=== PATIENT | male | born 1945 | race Caucasian/White ===

== ENCOUNTER 2016-04-27 21:21 | Emergency (ER) | payer MEDICARE ==
[~2016-04-27 21:21] MED LIST: ASPI325T32 PO; ATOR80TA PO; CALC-190 PO; CINN500C14 PO; GARL1TAB PO; LOSA25TA21 PO; METF500T4 PO; METO25TA6 PO; MULT1CAP33 PO; Melatonin; NITR0.4T6 SL; SILD100T PO; Vitamin D3
[2016-04-27 21:24] VITALS: PULSE 69; RESP 18; O2SAT 94
[2016-04-27 21:38] VITALS: BP 126/58; PULSE 65; RESP 11; O2SAT 95
--- NOTE | 2016-04-27 21:41 | ED.REPORT ---
HPI-General Illness Date of Service Apr 27, 2016 ED Provider: Dr. Mateo Unger MD A 70 year old male with a history of CAD and type II diabetes presents to the ED after a syncopal episode that occurred just prior to arrival. Associated symptoms include diaphoresis and dizziness. His symptoms are exacerbated by standing up and relieved when he is laying down. Patient states that he may have overdosed on metformin and his BP medication. He denies any chest pain, nausea or vomiting. He last ate an orange at 1999. Patient is a difficult historian. Patient's reports that he has not been eating normally over the course of the past month, however, he has been on the road for the past 3 weeks. She does not believe the possible overdose of medication was intentional. Nursing Notes Stated Complaint: NEAR SYCOPE,SWEATS Chief Complaint: General Complaint Nursing Notes Reviewed: Yes Allergies: Coded Allergies: tetracycline (Verified Allergy, Mild, 01/03/09) lisinopril (Verified Allergy, Unknown, 08/09/15) Scheduled Aspirin (Aspirin) 325 Mg Tablet 325 MG PO DAILY Atorvastatin (Lipitor) 80 Mg Tablet 80 MG PO DAILY Calcium Carb&Cit/Mag12/Vit D3 (Calcium 500 mg Tablet) 1 Each Tablet 1 EACH PO DAILY Cinnamon Bark (Cinnamon) 500 Mg Capsule 2 TAB PO DAILY Garlic (Garlic) 1 Each Tablet 2 EACH PO DAILY Losartan Potassium (Losartan Potassium) 25 Mg Tablet 25 MG PO DAILY Metformin (Metformin) 500 Mg Tablet 500 MG PO BIDAC Metoprolol Tartrate (Metoprolol Tartrate) 25 Mg Tablet 25 MG PO BID Multivitamin (Multivitamins) 1 Each Capsule 1 EACH PO DAILY Scheduled PRN Nitroglycerin SL (Nitroglycerin SL) 0.4 Mg Tab.subl 0.4 MG SL PRN For Chest Pain Sildenafil Citrate (Viagra) 100 Mg Tablet 100 MG PO UD PRN PRN for sexual activity Miscellaneous Medications ([Melatonin]) ([Vitamin D3]) General Time Seen by MD: 21:41 Chief Complaint Other (Near syncope) Hx Obtained From: Patient Arrived By: Walk-in Sudden in Onset?: Yes Onset Occurred: Just prior to arrival Symptom Duration: Since onset Associated with: Reports: Diaphoresis, Dizziness, Syncope, Denies: Nausea, Vomiting Pertinent Negative: Pt denies other symptoms Exacerbated by: Standing up Relieved by: Rest Recent Healthcare: No recent hospitalization, Recent doctor visit Past Medical History Past Medical History Coronary Artery Disease Diabetes Mellitus Past Surgical History Colonoscopy Stent placement 10 years ago Smoking History Former Smoker Social History Other Social History: Good social support, Local resident Occupation Long-distance forklift truck mechanic Ambulatory Status Independent Review of Systems Full Review of Systems Constitutional: Denies: Chills, Fever Respiratory: Denies: Shortness of breath Cardiovascular: Denies: Chest pain GI: Denies: Abdominal pain, Nausea, Vomiting Skin: Reports Diaphoresis Neurologic: Reports: Dizziness, Syncope, Denies: Change LOC Complete sys rev & neg: except as marked. Physical Exam Vital Signs Vital Signs Date Time Temp Pulse Resp B/P Pulse Ox O2 Delivery O2 Flow Rate FiO2 04/28/16 02:06 90 22 149/55 96 Room Air 04/28/16 00:06 128/51 118/52 145/52 04/27/16 21:38 36.4 65 11 126/58 95 Room Air 04/27/16 21:24 69 18 94 Room Air Initial VS: Reviewed Neurologic: Alert, Oriented, Nonfocal Psychiatric: Mood/affect normal, Behavior normal, Normal thought content General/Constitutional: Awake, Alert, No acute distress Head / Eyes: Atraumatic, Normocephalic Neck: Atraumatic, Supple Respiratory / Chest: Atraumatic, Breath sounds NL, Breath sounds = bilat, No respiratory distress Cardiovascular: Heart rate NL, Regular rhythm, Heart sounds NL CARDIO: Hypotensive Abdomen: Atraumatic, Soft, Non-tender Upper Extremities Upper Extremity / MS: Atraumatic, Neurologic intact, Vascular intact Lower Extremity / Pelvis / MS: Atraumatic, Neurologic intact, Vascular intact Skin: Atraumatic, Color NL, Warm Color / Condition: Negative: Diaphoresis present (Resolved) Interpretation & Diagnostics Lab Results Interpretation Result Diagram: 04/27/16213904/27/162139 Test 04/27/16 21:40 White Blood Count 14.2th/mm3 (3.8-10.1) Red Blood Count 3.95mil/mm3 (4.40-5.80) Hemoglobin 12.2g/dL (13.8-17.2) Hematocrit 34.9% (41.0-50.0) Mean Corpuscular Volume 88.4fL (81-100) Mean Corpuscular Hemoglobin 30.9pg (27.0-35.0) Mean Corpuscular Hemoglobin Concent 35.0% (32.0-37.0) Red Cell Distribution Width 11.9% (12.3-15.4) Platelet Count 292bil/L (150-400) Neutrophils (%) (Auto) 63.8% (40-74) Lymphocytes (%) (Auto) 26.8% (14-46) Monocytes (%) (Auto) 8.2% (4-12) Eosinophils (%) (Auto) 0.6% (0-5) Basophils (%) (Auto) 0.2% (0-3) Prothrombin Time 11.0sec (8.1-12.5) Prothromb Time International Ratio 1.03ratio Activated Partial Thromboplast Time 21.8sec (22.8-33.0) D-Dimer < 0.5mg/L (<0.50) Sodium Level 135mEq/L (134-144) Potassium Level 3.6mEq/L (3.5-5.2) Chloride Level 98mEq/L (97-108) Carbon Dioxide Level 23mmol/L (18-29) Blood Urea Nitrogen 44mg/dL (8-27) Creatinine 0.88mg/dL (0.76-1.27) Estimat Glomerular Filtration Rate 91mL/min (>59) Glucose Level 234mg/dL (60-99) Calcium Level 8.7mg/dL (8.5-10.1) Magnesium Level 1.7mg/dL (1.6-2.6) Total Bilirubin 0.5mg/dL (0.0-1.2) Aspartate Amino Transf (AST/SGOT) 14U/L (0-50) Alanine Aminotransferase (ALT/SGPT) 16U/L (0-44) Alkaline Phosphatase 57U/L (25-160) Troponin T 0.010ug/L (0.0-0.011) Pro-B-Type Natriuretic Peptide 88.89pg/mL (0-376) Total Protein 6.4g/dL (6.4-8.4) Albumin 4.0g/dL (3.4-5.0) Hold Britt Top Tube Received (Received) ECG Interpretation ECG Interpretation: Sinus Rhythm Rate 64 Left axis deviation Prolonged QT interval Time: 21:39 Interpreted by: ED physician X-Ray Chest Interpretation Chest Xray Interpretation: IMPRESSION: Borderline heart size No other acute abnormalities Interpretation / Wet Read by: Wet read ED physician Re-Eval/Medical Decision Med Decision/Clinical Course 70-year-old with diabetes and coronary disease presents after a diaphoretic episode with orthostasis. He has no evidence of acute coronary syndrome. He appears to be orthostatic and improved after fluids here. He is back to baseline and feeling completely normal by the time of discharge. He is discharged in stable condition with presumptive presyncopal vasovagal episode. Time of Eval: 23:17 Patient Status: Condition improved Re-Evaluation/Progress Note: provides a more extensive history Time of Eval: 01:41 Patient Status: Condition improved Re-Evaluation/Progress Note: Patient is rechecked. His symptoms have improved. He is informed of his lab results, X-ray results, CT results and diagnosis. All questions are addressed. He understands and agrees with the treatment plan. Counseled Regarding: Diagnosis, Lab results, Need for follow-up, When/why to return to ED Discharge & Departure Primary Impression: Orthostatic hypotension Additional Impression: Vasovagal episode Disposition: Home Discharge Condition All VS Reviewed: Yes Condition: Stable Patient Instructions: Syncope (ED) Additional Instructions: Drink plenty of fluids and stay well-hydrated. Take your medicines as directed. Do not overuse your medicines. Use a daily dispenser to make sure you do not accidentally overdose. Return if any immediate issues. Call your doctor on Friday for follow-up. Referrals: Johann Alcazar MD (PCP) Danielaibe Attestation Portions of this note were transcribed by Cheyanne Fountain. I, Dr. Unger personally performed the history, physical exam and medical decision-making; I reviewed and confirmed the accuracy of the information in the transcribed note. Signed by: Matthias Conley, 04/28/16 0100. copies to: Johann Alcazar MD, Christopher W MD Apr 27, 2016 21:41 CHEYANNE FOUNTAIN Apr 27, 2016 21:51
[2016-04-27] MEDS ORDERED: 0.9% Sodium Chloride 1,000 ML IV ONE ×2 (21:47→21:50)
[2016-04-27 22:30] LABS: BASOPHILS % (AUTO) 0.2 % (0-3); EOSINOPHILS % (AUTO) 0.6 % (0-5); MONOCYTES % (AUTO) 8.2 % (4-12); Mean Corpuscular Hemoglobin 30.9 pg (27.0-35.0); Mean Corpuscular Volume 88.4 fL (81-100); NEUTROPHILS % (AUTO) 63.8 % (40-74); Platelet Count 292 bil/L (150-400)
[2016-04-27 22:42] LABS: TROPONIN T 0.01 ug/L (0.0-0.011)
[2016-04-27 22:53] LABS: Magnesium 1.7 mg/dL (1.6-2.6)
[2016-04-27 22:54] LABS: D-DIMER < 0.5 mg/L (<0.50); INR 1.03 ratio
[2016-04-28 00:06] VITALS: BP_SYST 118; BP_SYST 128; BP_SYST 145; BP_DIAS 51; BP_DIAS 52
[2016-04-28] MEDS: 0.9% Sodium Chloride 1,000 ML IV SCH ×2 (00:06→01:00)
[2016-04-28 02:06] VITALS: BP 149/55; PULSE 90; RESP 22; O2SAT 96
--- NOTE | 2016-04-28 15:13 | DRSVH ---
PROCEDURE: X-RAY CHEST ONE VIEW, PORTABLE ([id number]) INDICATIONS: hypotension, dizziness TECHNIQUE: One view of the chest was acquired. COMPARISON: [facility], , CHEST 1VW (PORTABLE), 12/23/2007, 15:48. FINDINGS: Surgical changes and devices: None. Lungs and pleura: No pleural effusions or pneumothorax. Lungs are clear. Mediastinum: Mediastinal contours appear normal. Heart size is normal. Bones and chest wall: No suspicious bony lesions. Overlying soft tissues appear unremarkable. IMPRESSION: No acute cardiopulmonary disease. Dictated by: Felipe Campbell M.D. on 04/28/2016 at 8:47 Approved by: Felipe Campbell M.D. on 04/28/2016 at 8:48
== END 2016-04-28 01:51 | disposition home or self-care (01) ==
LOC: SED 21:21
DX: I95.1 Orthostatic hypotension (principal); R55 Syncope and collapse; R61 Generalized hyperhidrosis; R42 Dizziness and giddiness; I25.10 Atherosclerotic heart disease of native coronary artery without angina pectoris; E11.9 Type 2 diabetes mellitus without complications; Z98.61 Coronary angioplasty status; Z87.891 Personal history of nicotine dependence; Z88.8 Allergy status to other drugs, medicaments and biological substances; Z79.82 Long term (current) use of aspirin; Z79.84 Long term (current) use of oral hypoglycemic drugs
CPT/HCPCS: 36415; 71010; 80053; 82948; 83735; 83880; 84484; 85025; 85379; 85610; 85730; 86850; 93005; 96360; 96361; 99285; J7030